=== PATIENT | male | born 1975 | race Caucasian/White ===

== ENCOUNTER 2024-05-27 11:36 | Emergency (ER) | payer OTHER ==
[~2024-05-27] VITALS: Ht 177.8 cm; Wt 100.0 kg
[2024-05-27 11:49] VITALS: O2SAT 99
[2024-05-27] MEDS: SODIUM CHLORIDE 0.9% 1,000 ML IV ONE ×2 (12:30)
[2024-05-27] MEDS: KETOROLAC 30MG/ML VIAL IV ONE (12:30)
[2024-05-27] MEDS: MORPHINE SULFATE 4 MG/ML INJ (FOR IV/IM USE) IV ONE (12:30)
[2024-05-27 12:47] LABS: BASOPHILS % 0.6 % (0.0-2.0); EOSINOPHILS % 0.2 % (0.0-5.0); HEMATOCRIT. 43.1 % (42.0-52.0); HEMOGLOBIN. 14.7 g/dL (14.0-18.0); LYMPHOCYTES % 13.2 % (20.0-50.0); MEAN CORPUSCULAR HEMOGLOBIN 30.6 pg (28.0-32.0); MEAN CORPUSCULAR VOLUME 89.9 fL (80.0-94.0); MEAN PLATELET VOLUME 8.4 fl (7.4-10.4); MONOCYTES % 2.9 % (2.0-8.0); NEUTROPHILS % 83.1 % (40.0-76.0); PLATELET 326 x1000/uL (130-400); RED BLOOD CELL COUNT 4.79 mill/uL (4.7-6.1); RED CELL DISTRIBUTION WIDTH 12.9 % (11.6-14.6); WHITE BLOOD COUNT 11.4 x1000/uL (4.5-11.0)
[2024-05-27 12:58] LABS: CHLORIDE 105 mEq/L (98-107); POTASSIUM 3.9 mEq/L (3.5-5.1); SODIUM 139 mEq/L (136-145)
[2024-05-27 12:59] LABS: CARBON DIOXIDE 27 mEq/L (21-32)
[2024-05-27 13:00] LABS: CALCIUM 10.3 mg/dL (8.7-10.4)
[2024-05-27 13:04] LABS: CREATININE 1.1 mg/dL (0.6-1.3); GLUCOSE 121 mg/dL (70-105)
[2024-05-27 13:05] LABS: UREA NITROGEN BLOOD 18 mg/dL (9-23)
[2024-05-27 13:06] LABS: ALANINE AMINOTRANSFERASE 43 IU/L (10-49); ALBUMIN 4.5 g/dL (3.2-4.8); ASPARTATE AMINOTRANSFERASE 34 IU/L (<34)
[2024-05-27 13:07] LABS: BILIRUBIN DIRECT 0.1 mg/dL (<=3.0); BILIRUBIN TOTAL 0.5 mg/dL (0.1-1.0); PROTEIN TOTAL 7.4 g/dL (6.0-8.3)
[2024-05-27 15:23] LABS: CLARITY URINE CLEAR (CLEAR); COLOR URINE YELLOW (YELLOW); GLUCOSE URINE NEGATIVE (NEGATIVE); KETONES URINE 1+ (NEGATIVE); LEUKOCYTE ESTERASE URINE NEGATIVE (NEGATIVE); NITRITE URINE NEGATIVE (NEGATIVE); OCCULT BLOOD URINE 2+ (NEGATIVE); PH URINE 6.5 (4.5-8.0); PROTEIN URINE NEGATIVE (NEGATIVE); SPECIFIC GRAVITY URINE 1.018 (1.005-1.030); UROBILINOGEN URINE 0.2 E.U./dL (0.2-1.0)
[2024-05-27] MEDS ORDERED: TAMS-11 MT (16:17)
[2024-05-27] MEDS ORDERED: HYDR-4001 MT (16:17)
[2024-05-27] MEDS ORDERED: IBUP-2029 MT (16:17)
[2024-05-27] MEDS ORDERED: ONDA-239 PO (16:17)
[2024-05-27 16:25] LABS: SQUAMOUS EPITHELIAL CELL URINE 1+ /lpf (RARE/1+); WBC URINE 0-2 /hpf (0-2)
[2024-05-27 16:26] LABS: BACTERIA URINE TRACE
[2024-05-27 18:27] VITALS: BP 118/78; PULSE 68; RESP 18; TEMP 37.16964; O2SAT 99
== END 2024-05-27 18:30 | disposition home or self-care (01) ==
LOC: ER 11:36
DX: N23 Unspecified renal colic (principal); E05.90 Thyrotoxicosis, unspecified without thyrotoxic crisis or storm; Z79.899 Other long term (current) drug therapy
CPT/HCPCS: 99284; 96374; 96361; 96375; 80076; 80048; 81003; 85025; 36415; J1885; J2270; J7030